=== PATIENT | male | born 1970 | race Caucasian/White ===

== ENCOUNTER → 2018-01-13 | Outpatient (REF) | payer BC ==
[2018-01-13 16:48] LABS: TESTOSTERONE 391 NG/DL (241-827)
== END ==
LOC: M LAB REF 15:53
DX: F52.21 Male erectile disorder (principal)
CPT/HCPCS: 84403

== ENCOUNTER 2018-10-26 10:42 | Day surgery (SDC) | payer BC ==
[~2018-10-26] VITALS: Ht 180.3 cm; Wt 90.2 kg
[~2018-10-26 10:42] MED LIST: AMOX875T; CITA20TA6 PO; CYMB1CAP5; LIDOCAINE 2% INJ 100 MG/5 ML SDV (FOR ANES.) As Ordered ONE; NASONEX NASAL SPRAY; NS 1,000 ML IV ONE; PROPOFOL 200 MG/20 ML VIAL As Ordered ONE; [UNRECOGNIZED DRUG - OTHER]
--- NOTE | 2018-10-26 12:30 | ROOR ---
Patient Name: Yang Franco Procedure Date: 10/26/2018 12:11 PM Date of : 1970 Age: 48 Room: [facility] Gender: Male Note Status: Finalized Procedure: Colonoscopy Indications: Screening for colorectal malignant neoplasm Providers: Carson Busby Jr, MD Referring MD: Shahbaz Marcial MD Requesting Provider: Medicines: Propofol per Anesthesia Complications: No immediate complications. Procedure: Pre-Anesthesia Assessment: - Prior to the procedure, a History and Physical was performed, and patient medications and allergies were reviewed. The patient is competent. The risks and benefits of the procedure and the sedation options and risks were discussed with the patient. All questions were answered and informed consent was obtained. Patient identification and proposed procedure were verified by the physician and the nurse in the pre-procedure area and in the procedure room. Mental Status Examination: alert and oriented. Airway Examination: normal oropharyngeal airway and neck mobility. Respiratory Examination: clear to auscultation. CV Examination: normal. ASA Grade Assessment: II - A patient with mild systemic disease. After reviewing the risks and benefits, the patient was deemed in satisfactory condition to undergo the procedure. The anesthesia plan was to use moderate sedation / analgesia (conscious sedation). Immediately prior to administration of medications, the patient was re-assessed for adequacy to receive sedatives. The heart rate, respiratory rate, oxygen saturations, blood pressure, adequacy of pulmonary ventilation, and response to care were monitored throughout the procedure. The physical status of the patient was re-assessed after the procedure. The Colonoscope was introduced through the anus and advanced to the cecum, identified by appendiceal orifice and ileocecal valve. The colonoscopy was performed without difficulty. The patient tolerated the procedure well. The quality of the bowel preparation was adequate. Findings: The recto-sigmoid colon, sigmoid colon, descending colon, transverse colon, ascending colon, cecum, appendiceal orifice and ileocecal valve appeared normal. Two hyperplastic polyps were found in the rectum. The polyps were diminutive in size. These polyps were removed with a cold snare. Resection and retrieval were complete. Impression: - The recto-sigmoid colon, sigmoid colon, descending colon, transverse colon, ascending colon, cecum, appendiceal orifice and ileocecal valve are normal. - Two diminutive polyps in the rectum, removed with a cold snare. Resected and retrieved. Recommendation: - Discharge patient to home (ambulatory). - Repeat colonoscopy in 5-10 years for surveillance based on pathology results. Carson Busby MD Carson Busby Jr, MD 10/26/2018 12:29:59 PM Electronically signed by Carson Busby Jr, MD Number of Addenda: 0 Note Initiated On: 10/26/2018 12:11 PM Estimated Blood Loss: Estimated blood loss: none.
[2018-10-26 12:52] VITALS: BP 111/78
== END 2018-10-26 13:02 | disposition home or self-care (01) ==
LOC: M OPP 10:42
PROVIDERS: ATTEND Surgery
DX: Z12.11 Encounter for screening for malignant neoplasm of colon (principal); K62.1 Rectal polyp; M72.2 Plantar fascial fibromatosis; F32.9 Major depressive disorder, single episode, unspecified; F41.9 Anxiety disorder, unspecified; Z88.0 Allergy status to penicillin; Z91.030 Bee allergy status; Z79.899 Other long term (current) drug therapy

== ENCOUNTER → 2019-05-14 | Outpatient (REF) | payer BC ==
[~2019-05-14] MED LIST changes: -LIDOCAINE 2% INJ 100 MG/5 ML SDV (FOR ANES.) As Ordered ONE; -NS 1,000 ML IV ONE; -PROPOFOL 200 MG/20 ML VIAL As Ordered ONE
== END ==
LOC: M LAB REF 16:34
PROVIDERS: ATTEND Family Medicine
DX: F52.21 Male erectile disorder (principal)

== ENCOUNTER → 2019-10-07 | Outpatient (REF) | payer BC | LOC: M LAB REF 17:10 | PROVIDERS: ATTEND Physician Assistant | DX: R53.83 Other fatigue (principal) ==

== ENCOUNTER → 2021-01-16 | Outpatient (CLI) | payer BC ==
--- NOTE | 2021-01-16 15:38 | REP ---
INDICATION: COUGH, SOB COMPARISON: None. TECHNIQUE: PA and lateral. FINDINGS: Diffuse bilateral infiltrates consistent with COVID-19 pulmonary disease. No effusion. No pneumothorax. Mediastinum and cardiac silhouette are normal. IMPRESSION: Significant diffuse bilateral infiltrates compatible with COVID-19 pulmonary disease. <Electronically signed by Yury Schroeder > 01/16/21 [id number]
== END ==
LOC: M WUC 15:20
PROVIDERS: ATTEND Physician Assistant
DX: R91.8 Other nonspecific abnormal finding of lung field (principal); R05.9 Cough, unspecified; R06.02 Shortness of breath

== ENCOUNTER → 2021-03-10 | Outpatient (CLI) | payer BC ==
--- NOTE | 2021-03-10 17:49 | REP ---
INDICATION: PNEUMONIA DUE TO CORONAVIRUS DISEASE 2019. COMPARISON: PA and lateral chest images [id number]. TECHNIQUE: Upright PA and lateral chest images were obtained. FINDINGS: There is peribronchial consolidation in a central and peripheral distribution. This has demonstrated interval radiographic improvement. There is no lobar consolidation or pleural effusion. The heart borders and mediastinum are normal. The upper abdominal bowel gas pattern is normal. There are no significant bony abnormalities of the chest. IMPRESSION: Central and peripheral peribronchial consolidation, improved since the prior exam. The appearance is nonspecific but is consistent with sequela of COVID related pneumonia. Whether these findings are reversible is current [place] unclear. <Electronically signed by Rocael Silvestre > 03/10/21 [id number]
== END ==
LOC: M RAD 17:10
PROVIDERS: ATTEND Family Medicine
DX: J12.82 Pneumonia due to coronavirus disease 2019 (principal)

== ENCOUNTER → 2021-07-28 | Outpatient (REF) | payer BC | LOC: M LAB REF 11:05 | PROVIDERS: ATTEND Family Medicine | DX: Z12.5 Encounter for screening for malignant neoplasm of prostate (principal) ==

== ENCOUNTER → 2022-08-17 | Outpatient (CLI) | payer BC | LOC: M SOG 08:10 | PROVIDERS: ATTEND Physician Assistant | DX: M79.644 Pain in right finger(s) (principal) ==

== ENCOUNTER → 2023-05-25 | Outpatient (CLI) | payer BC | LOC: M WHC 12:40 | PROVIDERS: ATTEND Nurse Practitioner Family | DX: N63.0 Unspecified lump in unspecified breast (principal) ==

== ENCOUNTER 2023-10-27 07:56 | Day surgery (SDC) | payer BC ==
[~2023-10-27] VITALS: Ht 177.8 cm; Wt 89.8 kg
[~2023-10-27 07:56] MED LIST changes: +BUPR-71 PO; +FLUTISP; +TADA5TAB PO; +VALA1TAB5 PO
[2023-10-27] MEDS: NS 1,000 ML IV ONE (08:17)
[2023-10-27] MEDS ORDERED: propofoL 200 MG/20 ML VIAL As Ordered ONE (08:48)
[2023-10-27 09:04] VITALS: TEMP 98.6
[2023-10-27 09:28] VITALS: BP 138/84; O2SAT 96
== END 2023-10-27 09:41 | disposition home or self-care (01) ==
LOC: M OPP 07:56
PROVIDERS: ATTEND Surgery
DX: Z12.11 Encounter for screening for malignant neoplasm of colon (principal); Z86.010 Personal history of colon polyps; D12.6 Benign neoplasm of colon, unspecified; Z79.2 Long term (current) use of antibiotics; Z79.52 Long term (current) use of systemic steroids; Z79.899 Other long term (current) drug therapy; Z91.030 Bee allergy status

== ENCOUNTER → 2024-02-16 | Outpatient (REF) | payer BC | LOC: M LAB REF 13:44 | PROVIDERS: ATTEND Family Medicine | DX: E03.9 Hypothyroidism, unspecified (principal) ==

== ENCOUNTER → 2024-08-01 | Outpatient (CLI) | payer BC ==
[~2024-08-01] MED LIST changes: -TADA5TAB PO; +TADA5TAB2 PO
[2024-08-01 14:56] LABS: PROSTATIC SPECIFIC AG MONITOR 1.11 NG/ML (< 4.00)
[2024-08-01 14:59] LABS: ALBUMIN 3.7 G/DL (3.2-5.2); BILIRUBIN,TOTAL 0.3 MG/DL (0.3-1.2); CREATININE FOR GFR 1.03 MG/DL (0.70-1.30); GLOMERULAR FILTRATION RATE 85.3 (>56); POTASSIUM SERUM 4.2 MMOL/L (3.5-5.1); TOTAL PROTEIN 6.6 G/DL (5.7-8.2)
== END ==
LOC: M LAB 12:52
PROVIDERS: ATTEND Urology
DX: I86.1 Scrotal varices (principal)

== ENCOUNTER → 2024-11-22 | Outpatient (REF) | payer BC ==
[2024-11-22 15:10] LABS: PLATELET COUNT, AUTOMATED 182 10^3/uL (150-450)
[2024-11-22 15:17] LABS: ALT/SGPT 20.0 U/L (7.0-40); AST/SGOT 19.0 U/L (<34); CALCIUM LEVEL 9.0 MG/DL (8.5-10.1); CARBON DIOXIDE LEVEL 25.0 MMOL/L (20-31); CHLORIDE LEVEL 106.0 MMOL/L (98-107); CREATININE FOR GFR 1.07 MG/DL (0.70-1.30); GLOMERULAR FILTRATION RATE 81.4 (>56); POTASSIUM SERUM 4.1 MMOL/L (3.5-5.1); PROSTATIC SPECIFIC AG MONITOR 1.0 NG/ML (< 4.00); SODIUM LEVEL 141.0 MMOL/L (136-145)
[2024-11-22 15:18] LABS: TESTOSTERONE 280.0 NG/DL (241-827)
== END ==
LOC: M LAB REF 14:37 → M LABWUC 14:37
PROVIDERS: ATTEND Urology
DX: D36.9 Benign neoplasm, unspecified site (principal)

== ENCOUNTER → 2025-02-22 | Outpatient (REF) | payer BC | LOC: M LAB REF 12:26 | PROVIDERS: ATTEND Family Medicine | DX: E07.9 Disorder of thyroid, unspecified (principal) ==

== ENCOUNTER → 2025-02-27 | Outpatient (CLI) | payer BC ==
[2025-02-27 18:02] LABS: PLATELET COUNT, AUTOMATED 186 10^3/uL (150-450)
[2025-03-04 12:29] LABS: PSA % FREE 8.0 % (calc) (>25); PSA FREE 0.1 ng/mL; PSA TOTAL 1.3 ng/mL (< OR = 4.0)
== END ==
LOC: M LAB 16:27
PROVIDERS: ATTEND Urology
DX: Z12.5 Encounter for screening for malignant neoplasm of prostate (principal)

== ENCOUNTER → 2025-03-05 | Outpatient (CLI) | payer BC | LOC: M PLAIMG 08:38 | PROVIDERS: ATTEND Family Medicine | DX: H57.12 Ocular pain, left eye (principal); J30.9 Allergic rhinitis, unspecified ==